=== PATIENT | female | born 1950 | race Caucasian/White ===

== ENCOUNTER → 2023-09-29 10:27 | Outpatient (REF) | payer OTHER, SELFPAY | LOC: RAD 10:27 | PROVIDERS: ATTENDING PHYSICIAN Internal Medicine Rheumatology; FAMILY PHYSICIAN Family Medicine | DX: M15.9 Polyosteoarthritis, unspecified (principal) | CPT/HCPCS: 73130 ==

== ENCOUNTER → 2023-10-19 11:28 | Outpatient (REF) | payer OTHER, SELFPAY | LOC: HWRAD 11:28 | PROVIDERS: ATTENDING PHYSICIAN Internal Medicine Rheumatology; FAMILY PHYSICIAN Family Medicine | DX: M81.0 Age-related osteoporosis without current pathological fracture (principal) | CPT/HCPCS: 77080 ==

== ENCOUNTER → 2023-11-16 09:46 | Outpatient (REF) | payer OTHER, SELFPAY | LOC: WDC 09:46 | PROVIDERS: ATTENDING PHYSICIAN Family Medicine | DX: Z12.31 Encounter for screening mammogram for malignant neoplasm of breast (principal) | CPT/HCPCS: 77063; 77067 ==

== ENCOUNTER → 2024-09-13 10:08 | Outpatient (REF) | payer OTHER, SELFPAY ==
[2024-09-13 11:49] LABS: Intact PTH 44.1 pg/ml (13.6-85.8)
[2024-09-13 11:58] LABS: Alkaline Phosphatase 65 U/L (38-126); Blood Urea Nitrogen 19 mg/dl (7-17); Calcium 9.6 mg/dl (8.4-10.2); Carbon Dioxide 31 mmol/L (22-30); Chloride 93 mmol/L (98-107); Glucose 98 mg/dl (70-99); Potassium 5.6 mmol/L (3.5-5.1); Sodium 130 mmol/L (135-145); eGFR > 60.00
[2024-09-13 12:07] LABS: Vitamin D, 25-OH*** 62.2 ng/mL (30-80)
[2024-09-13 12:20] LABS: TSH Reflex To Free T4 2.75 uIU/ml (0.47-4.68)
== END ==
LOC: REG 10:08
PROVIDERS: ATTENDING PHYSICIAN Internal Medicine; FAMILY PHYSICIAN Family Medicine
DX: M81.0 Age-related osteoporosis without current pathological fracture (principal)
CPT/HCPCS: 36415; 80048; 82306; 83970; 84075; 84443